=== PATIENT | female | born 1975 | race Caucasian/White ===

== ENCOUNTER → 2024-05-20 20:07 | Outpatient (CLI) | payer OTHER, SELFPAY ==
--- NOTE | 2024-05-20 20:10 | DI.RAD.S_ITS ---
PROCEDURE: XR KNEE LT 1TO2V INDICATIONS: Left knee injury TECHNIQUE: Two views of the knee were acquired. COMPARISON: None. FINDINGS: Bones: No fractures or dislocations. No suspicious bony lesions. Mild marginal spurring along the lateral compartment. Soft tissues: No joint effusion. No suspicious soft tissue calcifications. IMPRESSION: No acute bony abnormality or significant effusion. Dictated by: Cesilia Lozano M.D. on 05/21/2024 at 11:11 Approved by: Cesilia Lozano M.D. on 05/21/2024 at 11:14
== END ==
PROVIDERS: Referring Provider Nurse Practitioner Family; Visit Provider Nurse Practitioner Family
DX: S89.92XA Unspecified injury of left lower leg, initial encounter (principal); X58.XXXA Exposure to other specified factors, initial encounter
CPT/HCPCS: 73560